=== PATIENT | male | born 1980 | race Caucasian/White ===

== ENCOUNTER 2022-08-24 21:04 | Emergency (ER) | payer BC ==
[~2022-08-24] VITALS: Ht 195.6 cm; Wt 104.3 kg
[2022-08-24 21:20] VITALS: BP 141/98
== END 2022-08-24 21:52 | disposition home or self-care (01) ==
LOC: ER 21:04
DX: S63.283A Dislocation of proximal interphalangeal joint of left middle finger, initial encounter (principal); W22.8XXA Striking against or struck by other objects, initial encounter
CPT/HCPCS: 26770; 73140; 99283-25